=== PATIENT | female | born 1950 | race Caucasian/White ===

== ENCOUNTER 2025-04-07 13:14 | Emergency (ER) | payer MEDICARE ==
[~2025-04-07] VITALS: Ht 157.5 cm; Wt 52.2 kg
[2025-04-07] MEDS ORDERED: ONDANSETRON HCL/PF 4 MG/2 ML VIAL ONE (14:20)
[2025-04-07] MEDS ORDERED: MORPHINE SULFATE INJ 2 MG/ML DISP.SYRIN ONE (14:20)
[2025-04-07] MEDS: IV NS 0.9% 500 ML BAG IV ONE (14:34)
[2025-04-07] MEDS: MORPHINE SULFATE INJ 2 MG/ML DISP.SYRIN IV ONE (14:34)
[2025-04-07] MEDS: ONDANSETRON HCL/PF 4 MG/2 ML VIAL IVP ONE (14:35)
[2025-04-07] MEDS ORDERED: KETOROLAC TROMETHAMINE INJ 30 MG/ML VIAL ONE (14:56)
[2025-04-07] MEDS: KETOROLAC TROMETHAMINE INJ 30 MG/ML VIAL IV ONE (14:59)
[2025-04-07] MEDS ORDERED: HYDR-4209 PO (15:41)
[2025-04-07] MEDS ORDERED: IBUP-1490 PO (15:41)
[2025-04-07 17:16] VITALS: BP 120/61; TEMP 98; O2SAT 98
== END 2025-04-07 16:10 | disposition home or self-care (01) ==
LOC: ER 13:23
DX: S52.532A Colles' fracture of left radius, initial encounter for closed fracture (principal); E03.9 Hypothyroidism, unspecified; Z60.2 Problems related to living alone; W01.0XXA Fall on same level from slipping, tripping and stumbling without subsequent striking against object, initial encounter; Y93.89 Activity, other specified; Y92.89 Other specified places as the place of occurrence of the external cause; Y99.8 Other external cause status
CPT/HCPCS: 29125; 73030; 73110; 96374; 96375; 99284; J1885; J2270; J2405; J7040